=== PATIENT | female | born 1980 | race Caucasian/White ===

== ENCOUNTER 2021-09-15 11:22 | Emergency (ER) | payer BC, OTHER ==
[2021-09-15 12:22] LABS: Urine Blood Negative (Negative); Urine Glucose Negative (Negative); Urine Protein Negative (Negative); Urine Specific Gravity 1.015 (1.005-1.030)
[2021-09-15 12:23] LABS: Absolute Lymphocytes (CBC) 1.7 K/uL (0.7-4.9); Hematocrit 44.3 % (36.0-45.0); MPV 8.9 fL (7.6-11.3)
[2021-09-15 12:39] LABS: BUN Blood Urea Nitrogen 9 mg/dL (7-18); Bicarbonate 32 mmol/L (21-32); Glomerular Filtration Rate 75 ml/min (=/>90); Glucose Level 84 mg/dL (74-106); Potassium 3.6 mmol/L (3.5-5.1); Sodium Level 140 mmol/L (136-145)
[2021-09-15 12:43] LABS: Troponin High Sensitivity < 3.0 pg/mL (<58.9)
[2021-09-15 12:56] LABS: Urine Specific Gravity/Preg 1.015 (1.005-1.030)
--- NOTE | 2021-09-15 13:21 | RAD REPORT ---
EXAM DESCRIPTION: RAD - Chest Single View - 09/15/2021 1:14 pm CLINICAL HISTORY: CHEST PAIN COMPARISON: No comparisons FINDINGS: Lines: None. Lungs: No evidence of edema or pneumonia. Pleural: No significant pleural effusions or pneumothorax. Cardiac: The heart size is within normal limits. Bones: No acute fractures. Other: IMPRESSION: No acute cardiopulmonary disease.
--- NOTE | 2021-09-15 13:41 | EDPHYS ---
Physician Documentation [facility] Name: Regine Palma Age: 41 yrs Sex: Female : 1980 Arrival Date: 09/15/2021 Time: 11:23 Bed DIS2 Private MD: ED Physician Barney Hubbard HPI: 09/15 13:42 This 41 yrs old Female presents to ER via Ambulatory with complaints of Chest Pain, ms3 Shortness Of Breath. 13:42 The patient or guardian reports chest pain that is located primarily in the substernal ms3 area. Onset: 1.5 hour(s) ago. The pain does not radiate. Associated signs and symptoms: Pertinent positives: shortness of breath, Pertinent negatives: nausea, vomiting. The chest pain is described as tight. Duration: The patient or guardian reports a single episode, that is now resolved. Modifying factors: The symptoms are alleviated by nothing. the symptoms are aggravated by nothing. Severity of pain: At its worst the pain was moderate in the emergency department the pain has resolved. 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 Flu vaccine is not up to date. - Social history:: Smoking status: Patient reports the use of cigarette tobacco products, smokes one-half pack cigarettes per day, Patient uses. ROS: 13:42 Constitutional: Negative for fever, and chills. Eyes: Negative for injury, pain, ms3 redness, and discharge, ENT: Negative for injury, pain, and discharge, Neck: Negative for injury, pain, and swelling, Abdomen/GI: Negative for abdominal pain, nausea, vomiting, diarrhea, and constipation, Skin: Negative for injury, rash, and discoloration. 13:42 Cardiovascular: Positive for chest pain. 13:42 Respiratory: Positive for shortness of breath. 13:42 All other systems are negative. Exam: 11:36 ECG was reviewed by the Attending Physician. ms3 13:42 Constitutional: This is a well developed, well nourished patient who is awake, alert, ms3 and in no acute distress. Head/Face: Normocephalic, atraumatic. Eyes: Pupils equal round and reactive to light, extra-ocular motions intact. Lids and lashes normal. Conjunctiva and sclera are non-icteric and not injected. Periorbital areas with no swelling, redness, or edema. Neck: Trachea midline, no cervical lymphadenopathy. Supple, full range of motion without nuchal rigidity, or vertebral point tenderness. No Meningismus. Chest/axilla: Normal chest wall appearance and motion. Nontender with no deformity. Cardiovascular: Regular rate and rhythm with a normal S1 and S2. No gallops, murmurs, or rubs. Normal PMI, no JVD. No pulse deficits. Respiratory: Lungs have equal breath sounds bilaterally, clear to auscultation and percussion. No rales, rhonchi or wheezes noted. No increased work of breathing, no retractions or nasal flaring. Abdomen/GI: Soft, non-tender, with normal bowel sounds. No distension or tympany. No guarding or rebound. No evidence of tenderness throughout. Skin: Warm, dry with normal turgor. Normal color with no rashes, no lesions, and no evidence of cellulitis. Psych: Awake, alert, with orientation to person, place and time. Behavior, mood, and affect are within normal limits. Vital Signs: 11:42 BP 104 / 86; Pulse 91; Resp 17; Temp 98.5; Pulse Ox 100% ; Weight 68.04 kg; Height 5 ap3 ft. 7 in. (170.18 cm); 11:42 Body Mass Index 23.49 (68.04 kg, 170.18 cm) ap3 MDM: 11:47 Patient medically screened. ms3 13:42 Differential diagnosis: abnormal EKG, acute myocardial infarction, anxiety, coronary ms3 artery disease chest wall pain. HEART Score: History: Slightly Suspicious (0), ECG: Normal (0), Age: < or = 45 years (0), Risk Factors: No Risk Factors Known (0), Troponin: < or = 1 x Normal Limit (0), Total Score = 0. Data reviewed: vital signs, nurses notes, lab test result(s), EKG, radiologic studies, plain films. Data interpreted: Pulse oximetry: on room air is 100 %. Interpretation: normal. Counseling: I had a detailed discussion with the patient and/or guardian regarding: the historical points, exam findings, and any diagnostic results supporting the discharge/admit diagnosis, lab results, radiology results, the need for outpatient follow up, to return to the emergency department if symptoms worsen or persist or if there are any questions or concerns that arise at home. ED course: Discussed labs, xray, physical exam findings with patient. Patient to follow-up with primary care physician in 2-3 days. Patient understands and agrees with plan. All questions were answered. Return precautions discussed include worsening symptoms, or any other concerns. On reevaluation patient is alert and oriented x4, in no apparent distress, nontoxic-appearing, speaking full sentences, ambulatory in emergency department. . 09/15 11:36 Order name: Basic Metabolic Panel; Complete Time: 13:33 ms3 09/15 11:36 Order name: CBC with Diff; Complete Time: 13:33 ms3 09/15 11:36 Order name: D-Dimer; Complete Time: 13:33 ms3 09/15 11:36 Order name: Troponin HS; Complete Time: 13:33 ms3 09/15 12:22 Order name: Urine Dipstick-Ancillary; Complete Time: 13:33 EDMS 09/15 12:29 Order name: Urine --Ancillary (enter results); Complete Time: 13:33 bd 09/15 11:36 Order name: XRAY Chest (1 view); Complete Time: 13:33 ms3 09/15 11:36 Order name: EKG; Complete Time: 11:36 ms3 09/15 11:36 Order name: Cardiac monitoring; Complete Time: 13:51 ms3 09/15 11:36 Order name: EKG - Nurse/Tech; Complete Time: 13:51 ms3 09/15 11:36 Order name: IV Saline Lock; Complete Time: 12:15 ms3 09/15 11:36 Order name: Labs collected and sent; Complete Time: 12:15 ms3 09/15 11:36 Order name: O2 Per Protocol; Complete Time: 13:51 ms3 09/15 11:36 Order name: O2 Sat Monitoring; Complete Time: 13:51 ms3 09/15 11:49 Order name: Urine Test (obtain specimen); Complete Time: 12:22 ms3 EC:36 Rate is 93 beats/min. Rhythm is regular. QRS [place] is Normal. Clinical impression: ms3 Normal ECG. Interpreted by me. Administered Medications: 13:51 Not Given (Cancel per Dr. Thornton): Aspirin Chewable Tablet 324 mg PO once; 81 mg tablets ss x 4 Disposition Summary: 09/15/21 13:41 Discharge Ordered Location: Home ms3 Condition: Stable ms3 Diagnosis - Chest pain, unspecified ms3 Followup: ms3 - With: Ronnie Farah MD - When: 2 - 3 days - Reason: Recheck today's complaints Discharge Instructions: - Discharge Summary Sheet ms3 - Nonspecific Chest Pain, Adult ms3 - Form - Return To Work ms3 Forms: - Medication Reconciliation Form ms3 - Thank You Letter ms3 - Work release form ms3 - Antibiotic Education ms3 - Prescription Opioid Use ms3 Signatures: Dispatcher [employer] Bere Espinoza RN RN ap3 Barney Hubbard, DO ms3 Alla Luevano RN ss
--- NOTE | 2021-09-15 13:41 | ER ---
Nurse's Notes [facility] Name: Regine Palma Age: 41 yrs Sex: Female : 1980 Arrival Date: 09/15/2021 Time: 11:23 Bed DIS2 Private MD: Diagnosis: Chest pain, unspecified Presentation: 09/15 11:42 Chief complaint: Patient states: she was at work when she began having chest pain and ap3 chest tightness. patient states the crushing pain has since eased, however she still feels the chest tightness. Patient denies nausea, vomiting and shortness of breath at this time. Coronavirus screen: At this time, the client does not indicate any symptoms associated with coronavirus-19. Ebola Screen: No symptoms or risks identified at this time. Initial Sepsis Screen: Does the patient meet any 2 criteria? No. Patient's initial sepsis screen is negative. Does the patient have a suspected source of infection? No. Patient's initial sepsis screen is negative. Risk Assessment: Do you want to hurt yourself or someone else? Patient reports no desire to harm self or others. Onset of symptoms was September 15, 2021 at 10:45. 11:42 Method Of Arrival: Ambulatory ap3 11:42 Acuity: TINO 3 ap3 Triage Assessment: 11:44 General: Appears in no apparent distress. Behavior is calm, cooperative. Pain: ap3 Complains of pain in chest Pain does not radiate. Quality of pain is described as pressure, Pain began suddenly, 1 hour ago. Is continuous. Cardiovascular: Reports chest pain, Patient's skin is warm and dry. Rhythm is regular. Respiratory: Airway is patent Respiratory effort is even, unlabored, Respiratory pattern is regular, symmetrical. 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 Flu vaccine is not up to date. - Social history:: Smoking status: Patient reports the use of cigarette tobacco products, smokes one-half pack cigarettes per day, Patient uses. Screenin:44 Abuse screen: Denies threats or abuse. Nutritional screening: No deficits noted. ap3 Tuberculosis screening: No symptoms or risk factors identified. Fall Risk None identified. Assessment: 13:51 General: Appears in no apparent distress. comfortable, Behavior is calm, cooperative, ss Denies fever, feeling ill, fatigue, chills. Neuro: Level of Consciousness is awake, alert, obeys commands, Oriented to person, place, time, situation, Speech is normal. Cardiovascular: Capillary refill < 3 seconds is brisk in bilateral fingers. Respiratory: Airway is patent Respiratory effort is even, unlabored, Respiratory pattern is regular, symmetrical. GI: Patient currently denies abdominal pain, diarrhea, nausea, vomiting. EENT: Oral mucosa is moist. Vital Signs: 11:42 BP 104 / 86; Pulse 91; Resp 17; Temp 98.5; Pulse Ox 100% ; Weight 68.04 kg; Height 5 ap3 ft. 7 in. (170.18 cm); 11:42 Body Mass Index 23.49 (68.04 kg, 170.18 cm) ap3 ED Course: 11:23 Patient arrived in ED. as 11:35 Barney Hubbard DO is Attending Physician. ms3 11:43 Triage completed. ap3 11:45 Arm band placed on right wrist. ap3 11:45 Patient maintains SpO2 saturation greater than 95% on room air. ap3 12:15 Basic Metabolic Panel Sent. zm 12:15 CBC with Diff Sent. zm 12:15 D-Dimer Sent. zm 12:15 Troponin HS Sent. zm 12:16 Inserted saline lock: 20 gauge in left antecubital area, using aseptic technique. Blood zm collected. 12:23 Troponin HS Sent. zm 12:23 CBC with Diff Sent. zm 12:23 D-Dimer Sent. zm 12:23 Basic Metabolic Panel Sent. zm 13:15 XRAY Chest (1 view) In Process Unspecified. EDMS 13:40 Ronnie Farah MD is Referral Physician. ms3 13:50 Alla Luevano, HERMELINDA is Primary Nurse. ss 13:51 Patient has correct armband on for positive identification. ss 13:51 No provider procedures requiring assistance completed. Patient did not have IV access ss during this emergency room visit. Administered Medications: 13:51 Not Given (Cancel per Dr. Thornton): Aspirin Chewable Tablet 324 mg PO once; 81 mg tablets ss x 4 Medication: 11:45 VIS not applicable for this client. ap3 Outcome: 13:41 Discharge ordered by MD. ms3 13:51 Discharged to home ambulatory. ss 13:51 Condition: good 13:51 Demonstrated understanding of instructions, follow-up care, medications. 13:54 Patient left the ED. Signatures: Dispatcher [employer] Nyasia Cloud Shelby, RN RN Bere Acosta RN RN ap3 Barney Hubbard DO DO ms3 Val García
[2021-09-15 14:51] VITALS: BP 104/86; TEMP 98.5; O2SAT 100
--- NOTE | 2021-09-16 07:39 | EKG ---
Test Date: 2021-09-15 Test Time: 11:36:31 Catering Truck Driver: ALP MEASUREMENT RESULTS: Intervals: Rate: 93 MI: 158 QRSD: 72 QT: 348 QTc: 432 [place]: P: 87 MI: 158 QRS: 83 T: 81 INTERPRETIVE STATEMENTS: Normal sinus rhythm Normal ECG No previous ECG available for comparison Electronically Signed On 09-16-21 07:37:13 CDT by Zafar Crump
== END 2021-09-15 13:54 | disposition home or self-care (01) ==
LOC: ER 11:22
DX: R07.9 Chest pain, unspecified (principal); R06.02 Shortness of breath; F17.210 Nicotine dependence, cigarettes, uncomplicated
CPT/HCPCS: 36415; 71045; 80048; 81003; 81025; 84484; 85025; 85379; 93005; 99284